=== PATIENT | female | born 1970 | race African-American/Black ===

== ENCOUNTER 2016-05-28 10:32 | Emergency (ER) | payer SELFPAY ==
[2016-05-28] MEDS ORDERED: Ibuprofen 800 MG TAB ONE (11:05)
[2016-05-28] MEDS ORDERED: predniSONE 20 MG TAB ONE (11:05)
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
== END 2016-05-28 11:08 | disposition home or self-care (01) ==
LOC: BURERS 10:32
DX: S43.102A Unspecified dislocation of left acromioclavicular joint, initial encounter (principal); F41.9 Anxiety disorder, unspecified; F17.210 Nicotine dependence, cigarettes, uncomplicated; F32.9 Major depressive disorder, single episode, unspecified; Z90.49 Acquired absence of other specified parts of digestive tract; Z90.710 Acquired absence of both cervix and uterus; V89.2XXA Person injured in unspecified motor-vehicle accident, traffic, initial encounter
CPT/HCPCS: 99283; J7506

== ENCOUNTER 2016-05-29 10:38 | Emergency (ER) | payer SELFPAY ==
--- NOTE | 2016-05-29 11:23 | ERRECORD ---
[facility] EMERGENCY RECORD HPI GENERAL (10:57 [facility]) CHIEF COMPLAINT: Patient presents for evaluation of Pain, possible fall. HISTORIAN: History provided by patient, 46F presents to the ED reporting that this morning as she got out of bed, she had a possible syncopal event. States her son told her she 'screamed and fell to the ground'. She reports he said that she was shaking for a very short period of time. She remembers waking up on the ground. She reports feeling pain in her right ribs and left shoulder, states that for the last few days she has had nausea and generalized malaise. Denies chest pain or shortnes of breath, denies headache. MECHANISM OF INJURY: Unknown mechanism. LOCATION: Symptoms are localized, most severe to RUQ, left shoulder. QUALITY: Pain is dull in nature, described as aching. TIME COURSE: Sudden onset of symptoms, Symptoms have resolved. RELIEVED BY: Nothing tried for relief. ROS (11:00 [facility]) CONSTITUTIONAL: Historian denies chills, reports fatigue, denies fever, reports malaise. EYES: Negative eye review of systems, Historian denies eye pain, denies vision changes. ENT: Negative ears, nose, throat review of systems, Historian denies rhinorrhea, denies sore throat, denies voice changes. CARDIOVASCULAR: Negative cardiovascular review of systems, Historian denies chest pain, denies palpitations. RESPIRATORY: Negative respiratory review of systems, Historian denies cough, denies shortness of breath. GI: RUQ aching pain, reports nausea. GENITOURINARY FEMALE: Negative genitourinary review of systems, Historian denies dysuria, denies frequency. MUSCULOSKELETAL: Negative musculoskeletal review of systems, Historian denies back pain, denies fall, denies injury. SKIN: Negative skin review of systems, Historian denies rash, denies skin changes. NEUROLOGIC: Negative neurologic review of systems, Reports possible syncopal/seizure event, Historian denies mental status changes, Historian denies paralysis, Historian denies headache, Historian denies paresthesias, Historian denies sensory changes. HEMO/LYMPHATIC: Normal hematologic/lymphatic system review, Historian denies abnormal blood clotting. ALLERGIC/IMMUNOLOGIC: Normal allergy/immunologic system review, Historian denies frequent infections. PAST MEDICAL HISTORY (11:00 [facility]) MEDICAL HISTORY: Flu vaccine not up to date, Tetanus not up to date, Pneumococcal vaccine not up to &a-1R&a+25V*p+0X*j4913A*c152B*c15G*c2P*p-0X&a-25V&a+1RName: Purvi Walton : 04/1970 F46 MedRec: [id number] AcctNum: [id number] Prepared: Kanchan May 29, 2016 11:10 by Interface Page 1 of 4 pMD [facility] EMERGENCY RECORD date, No past medical history. Verified on 05/29/16. FEMALE SURGICAL HISTORY: Surgical history of section, cholecystectomy, hysterectomy, intestinal surgery. Verified on 05/29/16. PSYCHIATRIC HISTORY: History of anxiety and depression. Patient denies psychiatric history. Verified on 05/29/16. SOCIAL HISTORY: Patient drinks socially, every week, Patient is a former drug user, abused methamphetamines, Patient currently uses tobacco, smokes cigarettes, daily, Patient smokes 1/2 packs per day. Reviewed with patient 10/08/15. Patient currently uses tobacco. Patient drinks daily. Patient currently uses tobacco, smokes cigarettes 1 pack/day. Patient denies any drug use. Verified on 05/29/16. KNOWN ALLERGIES codeine (Unconfirmed) codeine phosphate (bulk): Reaction: Anaphylaxis Darvocet-N 50 morphine (Unconfirmed) morphine (bulk): Reaction: Anaphylaxis No Known Drug Allergies CURRENT MEDICATIONS (10:47 [facility]) None VITAL SIGNS (10:46 [facility]) VITAL SIGNS: BP: 148/90, Pulse: 73, Resp: 18, Temp: 97.8 (Oral), Pain: 7, O2 sat: 98 on Room Air, Time: 05/29/2016 10:46. PHYSICAL EXAM (11:00 [facility]) CONSTITUTIONAL: Vital signs reviewed, Patient afebrile, Pulse normal, Blood pressure normal, Respiratory rate normal, Patient appears non toxic, Patient appears pain free, Patient alert and oriented to person, place and time. HEAD: Head exam normal, Head exam included findings of head atraumatic, normocephalic. EYES: Eye exam normal, Eye exam included findings of eyelids normal to inspection, Pupils equally round and reactive to light, Extraocular muscles intact, no nystagmus. ENT: ENT exam normal, Ear exam normal, external ear normal, tympanic membranes normal, no bleeding, Pharynx exam normal, Uvula exam normal, Tonsil exam normal, Mouth exam normal, mucous membranes moist, teeth normal. NECK: Neck exam normal, Neck exam included findings of normal range of motion, Trachea midline, no meningeal signs, no cervical adenopathy, no tenderness. RESPIRATORY CHEST: Respiratory and chest exam normal, Respiratory exam included findings of no respiratory distress, Breath sounds clear. CARDIOVASCULAR: Cardiovascular assessment normal, Cardiovascular &a-1R&a+25V*p+0X*f9669N*c152B*c15G*c2P*p-0X&a-25V&a+1RName: Purvi Walton : 04/1970 F46 MedRec: [id number] AcctNum: [id number] Prepared: Kanchan May 29, 2016 11:10 by Interface Page 2 of 4 pMD [facility] EMERGENCY RECORD exam included findings of heart rate regular rate and rhythm, Heart sounds normal. ABDOMEN FEMALE: Abdominal exam included findings of abdomen nontender, Bowel sounds normal, no distension, no mass, no pulsatile masses, no peritoneal signs, no rigidity, no guarding, no rebound, Rovsing's sign absent. BACK: Back exam normal, Back exam included findings of normal inspection, range of motion normal, no tenderness. UPPER EXTREMITY: Upper extremity exam normal, Upper extremity exam included findings of inspection normal, Range of motion normal, Motor strength normal, Sensation intact, Radial pulse normal. LOWER EXTREMITY: Lower extremity exam normal, Lower extremity exam included findings of inspection normal, Range of motion normal, Motor strength normal, Sensation intact, Posterior tibial pulse normal, Pedal pulse normal. NEURO: Neuro exam normal, Neuro exam findings include patient oriented to person, place and time, Speech normal, Gait normal, Cranial nerves intact, no focal motor deficits, no focal sensory deficits. SKIN: Skin exam normal, Skin exam included findings of skin warm, dry, and normal in color, no rash. PSYCHIATRIC: Psychiatric exam normal, Normal affect. DOCTOR NOTES (11:00 [facility]) TEXT: patient presented after what is most likely a syncopal event, less likely but also possibly a seizure event. No reported postictal period, no seizure history. Seizures unlikely to be triggered by the meds given yesterday. Advised no driving but the patient doesn't drive anyway, and instructed follow up with PMD for further seizure/syncopal workup. Don't believe she needs inpatient workup at this time based on history and exam. Regarding abdominal pain, patient is s/p cholecystectomy and has a benign physical exam. Appropriate for outpatient management. PATIENT STATUS: Patient has improved since arrival to emergency department. PATIENT PLAN: The patient will be discharged, The patient will follow up with primary care physician. PROBLEM LIST No recorded problems DIAGNOSIS (10:56 [facility]) FINAL: PRIMARY: SYNCOPE AND COLLAPSE. PRESCRIPTION No recorded prescriptions DISPOSITION PATIENT: Disposition Type: Discharge, Disposition: *Discharge Home. (:56 [facility]) Patient left the department. (11:02 [facility]) &a-1R&a+25V*p+0X*r8792N*c152B*c15G*c2P*p-0X&a-25V&a+1RName: Purvi Walton : 04/1970 [facility]ly [facility] MedRec: [id number] AcctNum: [id number] Prepared: SatMay 29, 2016 11:10 by Interface Page 3 of 4 pMD [facility] EMERGENCY RECORD Saunders: BISMARK=JIGNA Kirkpatrick, August [facility]=MD Rand, Adrian LEÓN=SILAS Mcleod, Kourtney &a-1R&a+25V*p+0X*[id number]*c152B*c15G*c2P*p-0X&a-25V&a+1RName: Purvi Walton : 04/1970 Formerly [facility] MedRec: [id number] AcctNum: [id number] Prepared: SatMay 29, 2016 11:10 by Interface Page 4 of 4 pMD MTDD
--- NOTE | 2016-05-29 11:31 | PICIS ---
[facility] EMERGENCY RECORD TRIAGE (10:46 [facility]) TRIAGE NOTES: pt states she sat up on edge of bed and does not remember if she fell. (10:46 [facility]) PATIENT: NAME: Purvi Walton, AGE: 46, GENDER: female, : Sat 1970, TIME OF GREET: SatMay 29, 2016 10:39, PREFERRED LANGUAGE: Romanian, ETHNICITY: Not or , ECODE BILLING MAP: [facility], SSN: [id number], Zip Code: [address], KG WEIGHT: 58.97, PHONE: , , , PERSON ID: [id number], PAYMENT: S[employer] Self Pay, PCP: [facility], /[facility]. (:46 [facility]) COMPLAINT: Possible fall. (10:46 [facility]) ADMISSION: URGENCY: 4 Non Urgent, ADMISSION SOURCE: Home, TRANSPORT: Walk-in, BED: TRIAGE. (:46 [facility]) ASSESSMENT: Assessment: Pt A&Ox4, NAd, breathing non-labored. (11:00 [facility]) PAIN: Patient complains of pain described as, nagging, Location Head, Pain is intermittent. (11:00 [facility]) IMMUNIZATIONS: Flu vaccine not up to date, Tetanus not up to date, Pneumococcal vaccine not up to date. (11:00 [facility]) SIRS SCORING: Heart Rate 55-109 (0), Temp range 96.8-101.1 (0), respiratory rate 12-24 (0), Mental Status altered: no (0), Infection or Suspected Infection: No. (11:00 [facility]) TRIAGE SCREENING: Patient denies suicidal ideation, Patient denies presence of domestic violence. (11:00 [facility]) LMP: LMP: Hysterectomy. (11:00 [facility]) PROVIDERS: TRIAGE NURSE: Kourtney Mcleod RN. (:46 [facility]) PREVIOUS VISIT ALLERGIES: No Known Drug Allergies. (:46 [facility]) No Known Drug Allergies. (11:00 [facility]) KNOWN ALLERGIES codeine (Unconfirmed) codeine phosphate (bulk): Reaction: Anaphylaxis Darvocet-N 50 morphine (Unconfirmed) morphine (bulk): Reaction: Anaphylaxis No Known Drug Allergies CURRENT MEDICATIONS (10:47 [facility]) None VITAL SIGNS (10:46 [facility]) VITAL SIGNS: BP: 148/90, Pulse: 73, Resp: 18, Temp: 97.8 (Oral), Pain: 7, O2 sat: 98 on Room Air, Time: 05/29/2016 10:46. NURSING ASSESSMENT: FOCUSED (10:47 [facility]) CONSTITUTIONAL: Patient arrives ambulatory, Gait steady, History obtained from patient, Patient appears comfortable, Patient cooperative, Patient alert, Oriented to person, place and time, Skin warm, Skin dry, Skin normal in color, Mucous membranes pink, Mucous &a-1R&a+25V*p+0X*h6847V*c152B*c15G*c2P*p-0X&a-25V&a+1RName: Purvi Walton Debbie : 04/1970 F46 MedRec: [id number] AcctNum: [id number] Prepared: Kanchan May 29, 2016 11:12 by Interface Page 1 of 5 pMD [facility] EMERGENCY RECORD membranes moist, Patient is well-groomed, Patient complains of Possible fall, Pt states she sat up at edge of bed this morning and does not recall if she fell, family reportedly thought is was a seizure and EMS was called. Pt refused EMS assistance and help because she felt better. Pt currently A&Ox4, NAD, breathing non-labored. PAIN: Head, on a scale 0-10 patient rates pain as 7. EYES: Focused eye assessment finding include pupils equally round and reactive to light, no redness, no tearing, no foreign body sensation. NEURO: Focused neuro assessment findings include patient alert, cooperative, No facial droop noted, Speech coherent, no weakness, no numbness, No loss of consciousness. GCS: Eye opening: (4) - Spontaneous, Verbal: (5) - Oriented/conversive, Motor: (6) - Obeys commands/Spontaneous, GCS Total: 15. RESPIRATORY: Focused respiratory assessment findings include breath sounds clear. ABDOMEN: Focused abdominal assessment findings include abdomen soft, no complaint of nausea, no vomiting, Bowel sounds present. MUSCULOSKELETAL: Focused musculoskeletal assessment findings include normal range of motion. LACERATION: Focused laceration assessment not applicable. SAFETY: Side rails up, Cart/Stretcher in lowest position, Call light within reach, Hospital ID band on. NURSING PROCEDURE: DISCHARGE NOTE (10:56 [facility]) DISCHARGE: Patient discharged to home, ambulating without assistance, friend driving, accompanied by other family member, Summary of Care printed/ provided, Transition record given to patient, Discharge instructions given to patient, Above person(s) verbalized understanding of discharge instructions and follow-up care, Patient treated and evaluated by physician. NURSING PROCEDURE: NURSE NOTES (10:49 [facility]) NURSES NOTES: Patient in no apparent distress, Notes: MD at bedside. HPI GENERAL (10:57 [facility]) CHIEF COMPLAINT: Patient presents for evaluation of Pain, possible fall. HISTORIAN: History provided by patient, 46F presents to the ED reporting that this morning as she got out of bed, she had a possible syncopal event. States her son told her she 'screamed and fell to the ground'. She reports he said that she was shaking for a very short period of time. She remembers waking up on the ground. She reports feeling pain in her right ribs and left shoulder, states that for the last few days she has had nausea and generalized malaise. Denies chest pain or shortnes of breath, denies headache. MECHANISM OF INJURY: Unknown mechanism. LOCATION: Symptoms are localized, most severe to &a-1R&a+25V*p+0X*a2287F*c152B*c15G*c2P*p-0X&a-25V&a+1RName: Purvi Walton : 04/1970 F46 MedRec: [id number] AcctNum: [id number] Prepared: Kanchan May 29, 2016 11:12 by Interface Page 2 of 5 pMD [facility] EMERGENCY RECORD RUQ, left shoulder. QUALITY: Pain is dull in nature, described as aching. TIME COURSE: Sudden onset of symptoms, Symptoms have resolved. RELIEVED BY: Nothing tried for relief. ROS (11:00 [facility]) CONSTITUTIONAL: Historian denies chills, reports fatigue, denies fever, reports malaise. EYES: Negative eye review of systems, Historian denies eye pain, denies vision changes. ENT: Negative ears, nose, throat review of systems, Historian denies rhinorrhea, denies sore throat, denies voice changes. CARDIOVASCULAR: Negative cardiovascular review of systems, Historian denies chest pain, denies palpitations. RESPIRATORY: Negative respiratory review of systems, Historian denies cough, denies shortness of breath. GI: RUQ aching pain, reports nausea. GENITOURINARY FEMALE: Negative genitourinary review of systems, Historian denies dysuria, denies frequency. MUSCULOSKELETAL: Negative musculoskeletal review of systems, Historian denies back pain, denies fall, denies injury. SKIN: Negative skin review of systems, Historian denies rash, denies skin changes. NEUROLOGIC: Negative neurologic review of systems, Reports possible syncopal/seizure event, Historian denies mental status changes, Historian denies paralysis, Historian denies headache, Historian denies paresthesias, Historian denies sensory changes. HEMO/LYMPHATIC: Normal hematologic/lymphatic system review, Historian denies abnormal blood clotting. ALLERGIC/IMMUNOLOGIC: Normal allergy/immunologic system review, Historian denies frequent infections. PAST MEDICAL HISTORY (11:00 [facility]) MEDICAL HISTORY: Flu vaccine not up to date, Tetanus not up to date, Pneumococcal vaccine not up to date, No past medical history. Verified on 05/29/16. FEMALE SURGICAL HISTORY: Surgical history of section, cholecystectomy, hysterectomy, intestinal surgery. Verified on 05/29/16. PSYCHIATRIC HISTORY: History of anxiety and depression. Patient denies psychiatric history. Verified on 05/29/16. SOCIAL HISTORY: Patient drinks socially, every week, Patient is a former drug user, abused methamphetamines, Patient currently uses tobacco, smokes cigarettes, daily, Patient smokes 1/2 packs per day. Reviewed with patient 10/08/15. Patient currently uses tobacco. Patient drinks daily. Patient currently uses tobacco, smokes cigarettes 1 pack/day. Patient denies any drug use. Verified on &a-1R&a+25V*p+0X*l0335Z*c152B*c15G*c2P*p-0X&a-25V&a+1RName: Purvi Walton : 04/1970 F46 MedRec: [id number] AcctNum: [id number] Prepared: Kanchan May 29, 2016 11:12 by Interface Page 3 of 5 pMD [facility] EMERGENCY RECORD 05/29/16. PHYSICAL EXAM (11:00 [facility]) CONSTITUTIONAL: Vital signs reviewed, Patient afebrile, Pulse normal, Blood pressure normal, Respiratory rate normal, Patient appears non toxic, Patient appears pain free, Patient alert and oriented to person, place and time. HEAD: Head exam normal, Head exam included findings of head atraumatic, normocephalic. EYES: Eye exam normal, Eye exam included findings of eyelids normal to inspection, Pupils equally round and reactive to light, Extraocular muscles intact, no nystagmus. ENT: ENT exam normal, Ear exam normal, external ear normal, tympanic membranes normal, no bleeding, Pharynx exam normal, Uvula exam normal, Tonsil exam normal, Mouth exam normal, mucous membranes moist, teeth normal. NECK: Neck exam normal, Neck exam included findings of normal range of motion, Trachea midline, no meningeal signs, no cervical adenopathy, no tenderness. RESPIRATORY CHEST: Respiratory and chest exam normal, Respiratory exam included findings of no respiratory distress, Breath sounds clear. CARDIOVASCULAR: Cardiovascular assessment normal, Cardiovascular exam included findings of heart rate regular rate and rhythm, Heart sounds normal. ABDOMEN FEMALE: Abdominal exam included findings of abdomen nontender, Bowel sounds normal, no distension, no mass, no pulsatile masses, no peritoneal signs, no rigidity, no guarding, no rebound, Rovsing's sign absent. BACK: Back exam normal, Back exam included findings of normal inspection, range of motion normal, no tenderness. UPPER EXTREMITY: Upper extremity exam normal, Upper extremity exam included findings of inspection normal, Range of motion normal, Motor strength normal, Sensation intact, Radial pulse normal. LOWER EXTREMITY: Lower extremity exam normal, Lower extremity exam included findings of inspection normal, Range of motion normal, Motor strength normal, Sensation intact, Posterior tibial pulse normal, Pedal pulse normal. NEURO: Neuro exam normal, Neuro exam findings include patient oriented to person, place and time, Speech normal, Gait normal, Cranial nerves intact, no focal motor deficits, no focal sensory deficits. SKIN: Skin exam normal, Skin exam included findings of skin warm, dry, and normal in color, no rash. PSYCHIATRIC: Psychiatric exam normal, Normal affect. EVENTS TRANSFER: Triage to Emergency Triage. (SatMay 29, 2016 10:46 [facility]) Emergency Triage to Emergency Room -02. (10:46 [facility]) Removed from Emergency Emergency Room -02. (11:02 [facility]) &a-1R&a+25V*p+0X*w4704I*c152B*c15G*c2P*p-0X&a-25V&a+1RName: Purvi Walton : 04/1970 F46 MedRec: [id number] AcctNum: [id number] Prepared: Kanchan May 29, 2016 11:12 by Interface Page 4 of 5 pMD [facility] EMERGENCY RECORD DOCTOR NOTES (11: [facility]) TEXT: patient presented after what is most likely a syncopal event, less likely but also possibly a seizure event. No reported postictal period, no seizure history. Seizures unlikely to be triggered by the meds given yesterday. Advised no driving but the patient doesn't drive anyway, and instructed follow up with PMD for further seizure/syncopal workup. Don't believe she needs inpatient workup at this time based on history and exam. Regarding abdominal pain, patient is s/p cholecystectomy and has a benign physical exam. Appropriate for outpatient management. PATIENT STATUS: Patient has improved since arrival to emergency department. PATIENT PLAN: The patient will be discharged, The patient will follow up with primary care physician. PROBLEM LIST No recorded problems DIAGNOSIS (: [facility]) FINAL: PRIMARY: SYNCOPE AND COLLAPSE. DISPOSITION PATIENT: Disposition Type: Discharge, Disposition: *Discharge Home. (:56 [facility]) Patient left the department. (11: [facility]) INSTRUCTION (:56 [facility]) DISCHARGE: DEHYDRATION (8Y-ADULT), SYNCOPE, VASOVAGAL. FOLLOWUP: [facility], /[facility], [address] [place] [id number], . SPECIAL: Follow up with your regular doctor. Drink more water. PRESCRIPTION No recorded prescriptions IMAGING (: [facility]) *DISCHARGE INSTRUCTIONS RECEIPT: Image captured from scanner. *SUPPLY CHARGE SHEET: Image captured from scanner. ADMIN (: [facility]) DIGITAL SIGNATURE: MD Gordillo Jason. Saunders: [facility]=JIGNA Kirkpatrick, August [facility]=MD Gordillo Jason [facility]=SILAS Mcleod Whitney &a-1R&a+25V*p+0X*h7119L*c152B*c15G*c2P*p-0X&a-25V&a+1RName: Purvi Walton : 04/1970 F46 MedRec: [id number] AcctNum: [id number] Prepared: Kanchan May 29, 2016 11:12 by Interface Page 5 of 5 pMD [facility]TDD
== END 2016-05-29 10:56 | disposition home or self-care (01) ==
LOC: BURERS 10:38
DX: R55 Syncope and collapse (principal); F41.9 Anxiety disorder, unspecified; F32.9 Major depressive disorder, single episode, unspecified; F17.210 Nicotine dependence, cigarettes, uncomplicated; Z90.49 Acquired absence of other specified parts of digestive tract; Z90.710 Acquired absence of both cervix and uterus
CPT/HCPCS: 99283

== ENCOUNTER 2017-07-25 08:14 | Emergency (ER) | payer BC, SELFPAY ==
[2017-07-25 09:04] LABS: #Basophils 0.2 thou/uL (0.0-0.2); #Eosinphils 0.4 thou/uL (0.0-0.7); #Lymphocytes 2.8 thou/uL (1.20-3.40); #Monocytes 0.6 thou/uL (0.11-0.59); #Neutrophils 5.5 thou/uL (1.40-6.50); %Basophils 1.7 % (0.0-1.0); %Eosinophils 4.3 % (0.0-10.0); %Lymphocytes 29.2 % (21.0-51.0); %Neutrophils 58.8 % (42.0-75.0); Hemoglobin 13.4 g/dL (12.0-16.0); Mean Corpuscular HGB CONC 32.9 g/dL (32.0-36.0); Mean Corpuscular Volume 76.1 fl (81.0-99.0); Mean Platelet Volume 7.8 fL (7.4-10.4); Platelet Count 139 thou/uL (130-400); RBC Distribution Width 14.2 % (11.5-14.5); Red Blood Cell (RBC) Count 5.34 mill/uL (4.20-5.40); White Blood Cell (WBC) Count 9.4 thou/uL (4.8-10.8)
[2017-07-25 09:14] LABS: ALT (SGPT) 18 U/L (8-55); AST (SGOT) 27 U/L (5-34); Alkaline Phosphatase 59 U/L (40-150); Anion Gap 19 mmol/L (10-20); BUN (Urea Nitrogen) 13 mg/dL (7.0-18.7); Bilirubin, Total 0.3 mg/dL (0.2-1.2); Calc. Creatinine Clearance 0 mL/min (70-130); Calcium 9.8 mg/dL (7.8-10.44); Carbon Dioxide 16 mmol/L (22-29); Chloride 108 mmol/L (98-107); Estimated GFR-MDRD Greater than 90; Globulin 3.5 g/dL (2.4-3.5); Glucose 83 mg/dL (70-105); Potassium 4.8 mmol/L (3.5-5.1); Protein, Total 7.5 g/dL (6.0-8.3); Sodium 138 mmol/L (136-145)
[2017-07-25] MEDS ORDERED: Acetaminophen 325 MG TAB ONE (09:23)
[2017-07-25] MEDS ORDERED: Meclizine HCl 25 MG TAB ONE (09:24)
[2017-07-25 09:30] LABS: PLT Morphology Comment Appears Adequate; RBC Morphology Normal
[2017-07-25 09:39] LABS: Bilirubin Negative (Negative); Blood, Urine Negative (Negative); Clarity Clear (Clear); Glucose, Urine (Dipstick) Negative (Negative); Leukocyte Negative (Negative); Nitrite Negative (Negative); Protein, Urine (Dipstick) Negative (Neg-Trace); Urobilinogen 0.2 mg/dL (0.2-1.0); pH, Urine 6.5 (5.0-9.0)
[2017-07-25] MEDS ORDERED: Acetaminophen 500 MG TAB ONE (10:14)
== END 2017-07-25 10:18 | disposition home or self-care (01) ==
LOC: BURERS 08:14
DX: H81.13 Benign paroxysmal vertigo, bilateral (principal); F41.9 Anxiety disorder, unspecified; F32.9 Major depressive disorder, single episode, unspecified; F17.210 Nicotine dependence, cigarettes, uncomplicated
CPT/HCPCS: 36415; 80053; 81003; 85025; 93005